=== PATIENT | male | born 1985 | race Two or more races ===

== ENCOUNTER 2024-05-14 22:23 | Inpatient (IN) | payer OTHER ==
[~2024-05-14] VITALS: Ht 160 cm; Wt 75.0 kg
[2024-05-15] MEDS: HYDROCODONE/ACETAMINOPHEN 5-325 MG TABLET PO ONE (00:58)
[2024-05-15] MEDS: IBUPROFEN 600 MG TABLET PO ONE (01:03)
[2024-05-15] MEDS ORDERED: ZOLPIDEM TARTRATE 5 MG TABLET PO PRN (01:30)
[2024-05-15] MEDS ORDERED: ONDANSETRON HCL 4 MG/2 ML VIAL IVP PRN (01:30)
[2024-05-15] MEDS ORDERED: ALBUTEROL SULFATE 2.5 MG/0.5 ML NEB SOLUTION NEB PRN (01:30)
[2024-05-15] MEDS ORDERED: IPRATROPIUM BROMIDE 0.5 MG/2.5 ML NEB SOLUTION NEB PRN (01:30)
[2024-05-15] MEDS: TraMADol HCL 50 MG TABLET PO ONE (01:58)
[2024-05-15] MEDS: LABETALOL HCL 5 MG/ML 20 ML VIAL IVP PRN (02:33)
[2024-05-15 05:31] VITALS: BP 129/81; PULSE 65; RESP 18; TEMP 97.5; O2SAT 97
[2024-05-15 08:53] VITALS: BP 131/79; PULSE 70; RESP 18; TEMP 98.4; O2SAT 98
[2024-05-15] MEDS: PANTOPRAZOLE SODIUM 40 MG DR TABLET PO SCH (09:32)
[2024-05-15] MEDS: NIFEdipine 30 MG ER TABLET PO SCH (09:32)
[2024-05-15] MEDS: ACETAMINOPHEN 325 MG TABLET PO PRN (16:58)
[2024-05-15 21:33] VITALS: BP 114/55; PULSE 73; RESP 17; TEMP 97.8; O2SAT 98
[2024-05-16 10:27] VITALS: BP 125/71; PULSE 69; RESP 20; TEMP 98.3; O2SAT 99
[2024-05-16 20:00] VITALS: BP 117/61; PULSE 67; RESP 20; TEMP 97.6; O2SAT 95
[2024-05-17 05:05] VITALS: BP 119/71; PULSE 86; RESP 20; TEMP 97.6; O2SAT 98
[2024-05-17 08:00] VITALS: BP 120/67; PULSE 73; RESP 20; TEMP 98.1; O2SAT 100
[2024-05-17 11:18] LABS: BASOPHILS % (AUTO) 0.5 % (0.0-2.0); EOSINOPHILS % (AUTO) 0.4 % (1.0-6.0); HEMATOCRIT 50.1 % (41-53); HEMOGLOBIN 16.7 g/dL (13.5-17.5); LYMPHOCYTES # (AUTO) 1.6 K/uL (1.0-4.8); LYMPHOCYTES % (AUTO) 20.7 % (22.0-44.0); MEAN CORPUSCULAR HEMOGLOBIN 30.3 pg (26.0-34.0); MEAN CORPUSCULAR HGB CONC 33.4 G/dL (31.0-37.0); MEAN CORPUSCULAR VOLUME 91 fL (80-100); MONOCYTES # (AUTO) 0.4 K/uL (0.1-1.0); MONOCYTES % (AUTO) 5.3 % (2.0-9.0); NEUTROPHILS # (AUTO) 5.7 K/uL (1.8-7.7); NEUTROPHILS % (AUTO) 73.1 % (40.0-70.0); PLATELET COUNT (AUTO) 237 K/uL (150-450); RED BLOOD CELL COUNT(AUTO) 5.52 MIL/uL (4.50-5.90); WHITE BLOOD COUNT (AUTO) 7.8 K/uL (4.5-11.0)
[2024-05-17 11:49] LABS: CALCIUM, TOTAL 8.8 mg/dL (8.8-10.5); CREATININE 1.35 mg/dL (0.60-1.30); POTASSIUM 3.7 mmol/L (3.5-5.1)
== END 2024-05-17 19:01 | DRG 563 ==
LOC: EMS 22:23 → EDH 05-15 01:44 → 6N 05-15 05:15
PROVIDERS: ADMIT Hospitalist; ATTEND Hospitalist
DX: S83.241A Other tear of medial meniscus, current injury, right knee, initial encounter (principal); M70.51 Other bursitis of knee, right knee; M23.91 Unspecified internal derangement of right knee; Y93.66 Activity, soccer; Y92.89 Other specified places as the place of occurrence of the external cause; Y99.8 Other external cause status
CPT/HCPCS: 73718; 80048; 85025; 97110; 97116; 97161; 97530; 99285; J3490